=== PATIENT | female | born 1975 | race Hispanic/Latino ===

== ENCOUNTER 2017-08-13 20:23 | Emergency (ER) | payer BC, OTHER ==
[~2017-08-13] VITALS: Ht 165.1 cm; Wt 79.4 kg
[~2017-08-13 20:23] MED LIST: TYLENOL WITH C1 EACH PO; ULTRAM 50MG50 MG PO; VITAMINS PO
== END 2017-08-13 21:07 | disposition home or self-care (01) ==
LOC: FSED 20:23
DX: M54.2 Cervicalgia (principal); S16.1XXA Strain of muscle, fascia and tendon at neck level, initial encounter; M25.512 Pain in left shoulder; V43.62XA Car passenger injured in collision with other type car in traffic accident, initial encounter; Y92.488 Other paved roadways as the place of occurrence of the external cause; F41.1 Generalized anxiety disorder
CPT/HCPCS: 99282

== ENCOUNTER 2017-09-18 10:46 | Emergency (ER) | payer OTHER ==
[~2017-09-18] VITALS: Ht 160 cm; Wt 80.7 kg
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
[2017-09-18] MEDS ORDERED: ACETAMINOPHEN 325 MG TAB PO ONE (11:30)
[2017-09-18] MEDS ORDERED: ONDANSETRON HCL 4 MG ORAL DISINTEGRATING TAB PO ONE (11:30)
== END 2017-09-18 11:33 | disposition home or self-care (01) ==
LOC: FSED 10:46
DX: I10 Essential (primary) hypertension (principal); R51 Headache; R11.0 Nausea; F43.9 Reaction to severe stress, unspecified; E11.9 Type 2 diabetes mellitus without complications
CPT/HCPCS: 99282